=== PATIENT | male | born 1965 | race Caucasian/White ===

== ENCOUNTER 2018-03-24 22:48 | Inpatient (IN) | payer OTHER ==
[~2018-03-24] VITALS: Ht 177.8 cm; Wt 139.0 kg
[2018-03-24 23:28] LABS: CHLORIDE 102 mEq/L (99-109); POTASSIUM 3.6 mEq/L (3.7-5.4); SODIUM 138 mEq/L (136-147)
[2018-03-24 23:29] LABS: HEMATOCRIT ND % (38.0-50.0); HEMOGLOBIN ND G/DL (12.5-16.6); MCH ND PG (29.0-34.0); MCV ND FL (86-99); RED BLOOD COUNT ND M/uL (4.00-5.50); WHITE BLOOD COUNT ND K/uL (4.1-10.2)
[2018-03-24 23:30] LABS: GLUCOSE 134 mg/dL (70-99); IMM.PLATELET FRACTION ND (1-7); MCHC ND G/DL (30.0-36.0); PLATELET COUNT ND K/uL (156-360); RBC DIS.WIDTH-CV ND % (11.8-14.6); RBC DIS.WIDTH-SD ND % (39-53)
[2018-03-24 23:31] LABS: NRBC (%) ND /100 WBC (0-0)
[2018-03-24 23:33] LABS: CREATININE 1.5 mg/dL (0.6-1.3); GFR ESTIMATE (CALCULATED) 52 mL/min/ (58.99-99999)
[2018-03-24 23:34] LABS: UREA NITROGEN (BUN) 21 mg/dL (9-23)
[2018-03-24 23:40] LABS: TROP-I INTERPRETATION NEGATIVE; TROPONIN-I 0.05 ng/mL (0.0-0.30)
[2018-03-24 23:45] LABS: ALBUMIN 4.1 g/dL (3.2-4.8)
[2018-03-24 23:46] LABS: MAGNESIUM 2.5 mg/dL (1.3-2.7)
[2018-03-24 23:48] LABS: TOTAL PROTEIN 6.7 g/dL (6.4-8.3)
[2018-03-24 23:48] LABS: HEMATOCRIT 40.5 % (38.0-50.0); HEMOGLOBIN 13.7 G/DL (12.5-16.6); MCH 30.6 PG (29.0-34.0); MCHC 33.8 G/DL (30.0-36.0); MCV 90.6 FL (86-99); PLATELET COUNT 148 K/uL (156-360); RBC DIS.WIDTH-CV 13.8 % (11.8-14.6); RBC DIS.WIDTH-SD 45.7 % (39-53); RED BLOOD COUNT 4.47 M/uL (4.00-5.50)
[2018-03-24 23:50] LABS: PTT 32.4 SEC (25-37); TOTAL BILIRUBIN 0.6 mg/dL (0.0-1.0)
[2018-03-24 23:51] LABS: ALKALINE PHOSPHATASE 97 IU/L (3-129)
[2018-03-24 23:53] LABS: AST (GOT) 20 IU/L (2-34); DIRECT BILIRUBIN 0.3 mg/dL (0.0-0.3)
[2018-03-24 23:54] LABS: ALT (GPT) 24 IU/L (3-49)
[2018-03-24 23:55] LABS: LIPASE 113 U/L (1.0-51.0)
[2018-03-25] VITALS (21 sets, daily range): BP systolic 87–128; BP diastolic 53–96
[2018-03-25 00:27] LABS: COMMENTS - BLOOD GASES C+; DEVICE NC; O2 FLOW 2 L/MIN; SITE LR; TOTAL RESP RATE 30 resp/min
[2018-03-25 00:28] LABS: BASE EXCESS 1.5 mEq/L (-3 to +3); BICARBONATE 25.9 mEq/L (22-26); CARBOXY HGB 3.5 % (0-5); METHEMOGLOBIN 0 % (0-1.5); O2 SATURATION (CALCULATED) 93.8 % (95-99); PCO2 39 mm Hg (35-45); PO2 67 mm Hg (80-100); pH 7.43 (7.35-7.45)
[2018-03-25 01:42] LABS: TROP-I INTERPRETATION NEGATIVE; TROPONIN-I 0.06 ng/mL (0.0-0.30)
[2018-03-25] MEDS ORDERED: BENZTROPINE ME0.5 MG PO (03:51)
[2018-03-25] MEDS ORDERED: PROZAC20 MG PO (03:52)
[2018-03-25] MEDS ORDERED: RISPERDAL2 MG PO (03:52)
[2018-03-25] MEDS ORDERED: ALDACTONE25 MG PO (03:53)
[2018-03-25] MEDS ORDERED: ZOCOR40 MG PO (03:53)
[2018-03-25] MEDS ORDERED: LASIX80 MG PO (03:54)
[2018-03-25] MEDS ORDERED: K-DUR20 MEQ PO (03:54)
[2018-03-25] MEDS ORDERED: CAPOTEN25 MG PO (03:54)
[2018-03-25] MEDS ORDERED: LEVOTHYROXINE25 MCG PO (03:55)
[2018-03-25] MEDS ORDERED: MINOCIN100 MG PO (03:55)
[2018-03-25] MEDS ORDERED: ADVIL200 MG PO (03:56)
[2018-03-25] MEDS ORDERED: ATIVAN1 MG PO ×2 (03:57)
[2018-03-25 12:56] LABS: HEMOGLOBIN A1c (GLYCOHEMOGLOB) 6.2 % (Below 5.7)
[2018-03-25 16:19] LABS: TROP-I INTERPRETATION NEGATIVE; TROPONIN-I 0.06 ng/mL (0.0-0.30)
[2018-03-25 16:48] LABS: CHLORIDE 103 mEq/L (99-109); POTASSIUM 3.6 mEq/L (3.7-5.4); SODIUM 140 mEq/L (136-147)
[2018-03-25 16:49] LABS: GLUCOSE 182 mg/dL (70-99)
[2018-03-25 16:53] LABS: CREATININE 1.5 mg/dL (0.6-1.3); GFR ESTIMATE (CALCULATED) 52 mL/min/ (58.99-99999)
[2018-03-25 16:54] LABS: UREA NITROGEN (BUN) 21 mg/dL (9-23)
[2018-03-26] VITALS (20 sets, daily range): BP systolic 87–118; BP diastolic 65–92
[2018-03-26 01:14] LABS: TROP-I INTERPRETATION NEGATIVE; TROPONIN-I 0.06 ng/mL (0.0-0.30)
[2018-03-26 06:59] LABS: HEMOGLOBIN 14.2 G/DL (12.5-16.6); MCH 29.7 PG (29.0-34.0); MCHC 32.3 G/DL (30.0-36.0); MCV 92.1 FL (86-99); PLATELET COUNT 149 K/uL (156-360); RBC DIS.WIDTH-CV 14.1 % (11.8-14.6); RED BLOOD COUNT 4.78 M/uL (4.00-5.50); WHITE BLOOD COUNT 6.8 K/uL (4.1-10.2)
[2018-03-26 07:19] LABS: TROP-I INTERPRETATION NEGATIVE; TROPONIN-I 0.06 ng/mL (0.0-0.30)
[2018-03-26 07:23] LABS: CHLORIDE 103 MEQ/L (99-109); CREATININE 1.5 MG/DL (0.6-1.3); GFR ESTIMATE (CALCULATED) 52 mL/min/ (58.99-99999); GLUCOSE 132 mg/dL (70-99); POTASSIUM 4.1 MEQ/L (3.7-5.4); SODIUM 143 MEQ/L (136-147); UREA NITROGEN (BUN) 20 mg/dL (9-23)
[2018-03-27] VITALS (20 sets, daily range): BP systolic 81–127; BP diastolic 52–79
[2018-03-27 09:51] LABS: BASOPHIL (%) 0.4 % (0-1); EOSINOPHIL (%) 0.8 % (0-5); EOSINOPHIL COUNT 0.1 K/uL (0-0.3); HEMATOCRIT 44.5 % (38.0-50.0); IMMATURE GRANULOCYTE (%) 0.2 % (0.0-0.7); LYMPHOCYTE (%) 12.3 % (15-42); LYMPHOCYTE COUNT 1.1 K/uL (1.0-2.8); MCH 30.9 PG (29.0-34.0); MCHC 33.7 G/DL (30.0-36.0); MCV 91.6 FL (86-99); MONOCYTE (%) 6.5 % (3-12); MONOCYTE COUNT 0.6 K/uL (0-0.8); NEUTROPHIL (%) 79.8 % (45-76); NEUTROPHIL COUNT 7.3 K/uL (1.8-6.4); PLATELET COUNT 146 K/uL (156-360); RBC DIS.WIDTH-CV 14.2 % (11.8-14.6); RED BLOOD COUNT 4.86 M/uL (4.00-5.50); WHITE BLOOD COUNT 9.1 K/uL (4.1-10.2)
[2018-03-27 09:56] LABS: INTER. NORMALIZED RATIO 1.1
[2018-03-27 10:02] LABS: CHLORIDE 104 mEq/L (99-109); POTASSIUM 4.4 mEq/L (3.7-5.4); SODIUM 142 mEq/L (136-147)
[2018-03-27 10:03] LABS: GLUCOSE 131 mg/dL (70-99)
[2018-03-27 10:07] LABS: CREATININE 1.6 mg/dL (0.6-1.3); GFR ESTIMATE (CALCULATED) 49 mL/min/ (58.99-99999)
[2018-03-27 10:08] LABS: UREA NITROGEN (BUN) 24 mg/dL (9-23)
[2018-03-28] VITALS (24 sets, daily range): BP systolic 80–113; BP diastolic 54–84
[2018-03-28 05:59] LABS: BASOPHIL (%) 0.3 % (0-1); EOSINOPHIL (%) 2.3 % (0-5); EOSINOPHIL COUNT 0.2 K/uL (0-0.3); HEMATOCRIT 43.8 % (38.0-50.0); HEMOGLOBIN 13.8 G/DL (12.5-16.6); IMMATURE GRANULOCYTE (%) 0.3 % (0.0-0.7); LYMPHOCYTE (%) 17.8 % (15-42); LYMPHOCYTE COUNT 1.4 K/uL (1.0-2.8); MCH 29.4 PG (29.0-34.0); MCHC 31.5 G/DL (30.0-36.0); MCV 93.4 FL (86-99); MONOCYTE (%) 7.8 % (3-12); MONOCYTE COUNT 0.6 K/uL (0-0.8); NEUTROPHIL (%) 71.5 % (45-76); NEUTROPHIL COUNT 5.6 K/uL (1.8-6.4); PLATELET COUNT 146 K/uL (156-360); RBC DIS.WIDTH-CV 14.2 % (11.8-14.6); RBC DIS.WIDTH-SD 48.8 % (39-53); RED BLOOD COUNT 4.69 M/uL (4.00-5.50); WHITE BLOOD COUNT 7.9 K/uL (4.1-10.2)
[2018-03-28 06:24] LABS: CHLORIDE 104 MEQ/L (99-109); CREATININE 1.6 MG/DL (0.6-1.3); GFR ESTIMATE (CALCULATED) 49 mL/min/ (58.99-99999); GLUCOSE 125 mg/dL (70-99); POTASSIUM 4.3 MEQ/L (3.7-5.4); SODIUM 143 MEQ/L (136-147); UREA NITROGEN (BUN) 23 mg/dL (9-23)
[2018-03-29 00:24] VITALS: BP 100/59
[2018-03-29 04:04] VITALS: BP 120/80
[2018-03-29 07:24] VITALS: BP 108/62
[2018-03-29 08:11] LABS: HEMATOCRIT 41.9 % (38.0-50.0); HEMOGLOBIN 13.5 G/DL (12.5-16.6); MCH 29.8 PG (29.0-34.0); MCHC 32.2 G/DL (30.0-36.0); MCV 92.5 FL (86-99); PLATELET COUNT 151 K/uL (156-360); RBC DIS.WIDTH-SD 47.3 % (39-53); RED BLOOD COUNT 4.53 M/uL (4.00-5.50); WHITE BLOOD COUNT 7.3 K/uL (4.1-10.2)
[2018-03-29 08:34] LABS: CHLORIDE 104 MEQ/L (99-109); CREATININE 1.5 MG/DL (0.6-1.3); GFR ESTIMATE (CALCULATED) 52 mL/min/ (58.99-99999); GLUCOSE 130 mg/dL (70-99); POTASSIUM 4.4 MEQ/L (3.7-5.4); SODIUM 142 MEQ/L (136-147); UREA NITROGEN (BUN) 21 mg/dL (9-23)
[2018-03-29 12:20] VITALS: BP 152/65
[2018-03-29] MEDS ORDERED: LISINOPRIL2.5 MG PO (14:44)
[2018-03-29] MEDS ORDERED: CARVEDILOL3.125 MG PO (14:44)
[2018-03-29] MEDS ORDERED: CORDARONE200 MG PO (14:44)
== END 2018-03-29 15:45 | disposition home health service (06) | DRG 286 ==
LOC: EME 22:48 → 4WEST 03-25 01:38 → EDOF 03-25 01:38 → 4EAST 03-25 01:38 → ENRESERV 03-25 01:41 → 4WEST 03-25 02:09 → ENRESERV 03-28 15:36 → CANRESERV 03-28 15:53 → ENRESERV 03-28 16:00 → 4EAST 03-28 16:46
PROVIDERS: Emergency Medicine; Hospitalist; Internal Medicine Critical Care Medicine; Physician Assistant Medical; Surgery
DX: I47.2 Ventricular tachycardia (principal); I42.9 Cardiomyopathy, unspecified; E11.22 Type 2 diabetes mellitus with diabetic chronic kidney disease; I13.0 Hypertensive heart and chronic kidney disease with heart failure and stage 1 through stage 4 chronic kidney disease, or unspecified chronic kidney disease; I50.21 Acute systolic (congestive) heart failure; N18.3 Chronic kidney disease, stage 3 (moderate); I95.9 Hypotension, unspecified; E87.6 Hypokalemia; I49.3 Ventricular premature depolarization; E78.5 Hyperlipidemia, unspecified; F20.9 Schizophrenia, unspecified; J44.9 Chronic obstructive pulmonary disease, unspecified; E03.9 Hypothyroidism, unspecified; F32.9 Major depressive disorder, single episode, unspecified; F41.9 Anxiety disorder, unspecified; E66.01 Morbid (severe) obesity due to excess calories; Z68.41 Body mass index [BMI] 40.0-44.9, adult; Z87.891 Personal history of nicotine dependence; Z91.19 Patient's noncompliance with other medical treatment and regimen
CPT/HCPCS: 36600; 71045; 80048; 80076; 81003; 82948; 83036; 83605; 83690; 83735; 83880; 84439; 84443; 84481; 84484; 85025; 85027; 85610; 85730; 87040; 87641; 93005; 93306; 94799; 99281; 99285; C1769; C1887; J1644; J1815; J2001; J2250; J2405; J2765; J3010; J7030